=== PATIENT | male | born 1955 | race Caucasian/White ===

== ENCOUNTER 2024-07-18 00:58 | Outpatient (CLI) | payer MEDICARE, SELFPAY ==
--- NOTE | 2024-07-18 10:19 | DI.RAD_ITS ---
Exam(s) XR FOOT RT COMPLETE XR HEEL RT OS CALCIS EXAM: XR FOOT RT COMPLETE CLINICAL HISTORY: Right foot pain,m79.671. TECHNIQUE: 2D digital imaging was performed. Three views. COMPARISON: CR XR HEEL RT OS CALCIS from 07/18/2024 FINDINGS: BONES: No acute fracture is present. No bony destructive lesion is seen. There is a fixation plate i n the lateral malleolus and a screw in the medial malleolus. There is a prominent enthesophyte at th e Achilles insertion. There is a small plantar calcaneal spur. JOINTS: No dislocation present. There are mild degenerative changes in the ankle and foot. The find ings are greatest at the great toe interphalangeal joint and 1st MTP joint. SOFT TISSUE: Normal. IMPRESSION: Prominent Achilles enthesophyte. Small plantar calcaneal spur. DATA REPOSITORY: RADIATION DOSE DELIVERED:
== END 2024-07-18 01:18 ==
PROVIDERS: PCP Specialist/Technologist Athletic Trainer; Visit Provider Podiatrist
DX: M79.671 Pain in right foot (principal); M72.2 Plantar fascial fibromatosis; B35.1 Tinea unguium; L60.3 Nail dystrophy
CPT/HCPCS: 29580; 99204; 29850; 73630; 73650

== ENCOUNTER → 2024-08-01 07:57 | Outpatient (BNVA) | payer MEDICARE, SELFPAY | PROVIDERS: PCP Specialist/Technologist Athletic Trainer; Referring Provider Specialist/Technologist Athletic Trainer; Visit Provider Podiatrist | DX: M72.2 Plantar fascial fibromatosis (principal); B35.1 Tinea unguium; L60.3 Nail dystrophy; B35.3 Tinea pedis | CPT/HCPCS: 99213 ==

== ENCOUNTER → 2024-10-22 08:00 | Outpatient (BNVA) | payer MEDICARE, SELFPAY | PROVIDERS: PCP Specialist/Technologist Athletic Trainer; Referring Provider Specialist/Technologist Athletic Trainer; Visit Provider Podiatrist | DX: M25.571 Pain in right ankle and joints of right foot (principal); M25.572 Pain in left ankle and joints of left foot; M72.2 Plantar fascial fibromatosis; B35.1 Tinea unguium; L60.3 Nail dystrophy; B35.3 Tinea pedis | CPT/HCPCS: 20605; J0702; J1100 ==

== ENCOUNTER 2024-10-22 14:24 | Outpatient (CLI) | payer MEDICARE, SELFPAY ==
--- NOTE | 2024-10-22 08:15 | DI.RAD_ITS ---
Exam(s) XR ANKLE LT COMPLETE EXAM: XR ANKLE LT COMPLETE CLINICAL HISTORY: Ankle pain,lt m25.572, TECHNIQUE: 2D digital imaging was performed. Three views. COMPARISON: None FINDINGS: BONES: No acute fracture is present. No bony destructive lesion is seen. Prominent enthesophyte at the Achilles insertion. Small plantar spur. JOINTS:There is severe narrowing of the tibiotalar joint space. There is prominent spurring anteriorly and posteriorly. Is also spurring at the malleoli. There is some calcification in the interosseous ligament region. SOFT TISSUE: Edema. 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 Prominent calcaneal enthesophyte. DATA REPOSITORY: RADIATION DOSE DELIVERED:
--- NOTE | 2024-10-22 08:15 | DI.RAD_ITS ---
Exam(s) XR ANKLE RT COMPLETE EXAM: XR ANKLE RT COMPLETE CLINICAL HISTORY: post traumatic ankle arthritis,rt ankle pain,m25.571. TECHNIQUE: 2D digital imaging was performed. Three views. COMPARISON: CR XR FOOT RT COMPLETE from 07/18/2024 FINDINGS: BONES: No acute fracture is present. No bony destructive lesion is seen. The fixation plate in lateral malleolus and a screw through the medial malleolus.No talar dome defect is seen. There is prominent enthesophyte at the Achilles insertion para plantar calcaneal spurs also present. JOINTS: The ankle mortise is normally aligned. There is mild narrowing of the tibiotalar joint space and mild periarticular spurring. SOFT TISSUE: Mild edema IMPRESSION: Postsurgical and degenerative changes. Large calcaneal enthesophyte. DATA REPOSITORY: RADIATION DOSE DELIVERED:
== END 2024-10-22 14:44 ==
LOC: DI 14:24
PROVIDERS: PCP Specialist/Technologist Athletic Trainer; Visit Provider Podiatrist
DX: M25.571 Pain in right ankle and joints of right foot (principal); M25.572 Pain in left ankle and joints of left foot
CPT/HCPCS: 20605; 73610

== ENCOUNTER → 2024-11-26 08:12 | Outpatient (BNVA) | payer MEDICARE, SELFPAY | PROVIDERS: PCP Specialist/Technologist Athletic Trainer; Referring Provider Specialist/Technologist Athletic Trainer; Visit Provider Podiatrist | DX: M25.571 Pain in right ankle and joints of right foot (principal); M25.572 Pain in left ankle and joints of left foot; M72.2 Plantar fascial fibromatosis; L60.3 Nail dystrophy; B35.1 Tinea unguium; B35.3 Tinea pedis | CPT/HCPCS: 20600; J0702; J1100 ==

== ENCOUNTER → 2024-12-31 08:14 | Outpatient (BNVA) | payer MEDICARE, SELFPAY | PROVIDERS: PCP Specialist/Technologist Athletic Trainer; Referring Provider Specialist/Technologist Athletic Trainer; Visit Provider Podiatrist | DX: M25.571 Pain in right ankle and joints of right foot (principal); M25.572 Pain in left ankle and joints of left foot; M72.2 Plantar fascial fibromatosis; B35.1 Tinea unguium; B35.3 Tinea pedis; L60.3 Nail dystrophy | CPT/HCPCS: 20605; J0702; J1100 ==